=== PATIENT | female | born 1940 | race Caucasian/White ===

== ENCOUNTER 2016-09-13 11:10 | Observation (INO) | payer MEDICARE, MEDICAID ==
[~2016-09-13] VITALS: Ht 157.5 cm; Wt 51.8 kg
[2016-09-13] VITALS (8 sets, daily range): BP systolic 103–180; BP diastolic 49–107; PULSE 54–74; RESP 11–20; O2SAT 98–99
[~2016-09-13 11:10] MED LIST: ACET-1890 PO; ASPI-628 PO; CARB1TAB37 PO; CARB1TAB40 PO; CHOL200025 PO; CRAN450C PO; DOCU100C8 PO; DONE10TA5 PO; ENTA200T6 PO; FERR-83 PO; GUAI100L12 PO; INSLIS SUBQ; INSU100V7 SUBQ; LISI2.5T PO; MULT-185 PO; OMEP-113 PO; ONDA4TAB9 PO; POLY15DR4 OU; POLY17PO6 PO; PRAM0.122 PO; PRAM0.252 PO; PREC VG; SELE1.25 PO; SIMV20TA4 PO; [UNRECOGNIZED DRUG - CODE] PO
--- NOTE | 2016-09-13 11:14 | ED.REPORT ---
HPI-Neurologic Deficit Date of Service Sep 13, 2016 ED Provider: Dr. Estrella A 76 year old female with a history of insulin dependent diabetes and Parkinson' s disease is presented to the ED from [facility] via EMS with AMS. She is moaning and yelling, and cannot answer questions. Per EMS, the [facility] reported blood sugar of 300 at their facility. The patient was then given ketamine with temporary relief of agitation. EMS denies any trauma, and [facility] reported that she gently got onto her bed and then began screaming prior to the onset of symptoms. EMS reports that after recieving ketamine they checked her blood sugar and readings were consistently low while en route, 29 and 32 respectively after two tests, she then recieved 1 amp of D50. No neurologic changes were noted after correcting glucose, however, the patient had just recieved ketamine prior to accuchecks. Blood sugar is now 259 when check in the ER. Per [facility], the patient normally crawls on the floor because she does not like being in a wheel chair, and she converses normally. Per [facility] staff, patient's last known normal was [id number]. Patient is DNR. Patient condition makes history intake difficult. Nursing Notes Stated Complaint: DECREASE LOC Chief Complaint: Neuro Symptoms/ Deficits Nursing Notes Reviewed: Yes Allergies: Coded Allergies: No Known Allergies (Unverified Allergy, Unknown, 09/13/16) Scheduled ([resource 2.0]) 90 ML PO BID Atorvastatin (Lipitor) 10 Mg Tab 10 MG PO HS Carbidopa/Levodopa 25-100 mg (Carbidopa/Levodopa 25-100 mg) 1 Each Tablet 2.5 TABLET PO qam at 0600 Carbidopa/Levodopa 25-100 mg (Sinemet 25-100 mg) 1 Each Tablet 3 TABLET PO qam at 0900 Carbidopa/Levodopa 25-100 mg (Sinemet 25-100 mg) 1 Each Tablet 2 TABLET PO TIDat noon,4p and 8p Carbidopa/Levodopa ER 50-200 mg (Sinemet CR 50-200 mg) 1 Each Tablet 1 TABLET PO HS Cholecalciferol (Vitamin D3) (Vitamin D3) 50,000 Unit Capsule 50,000 UNIT PO daily every 15 days Dextran 70/Hypromellose/Pf (Artificial Tears Drops) 1 Each Droperette 1 DROP BOTH_EYES QID Docusate Sodium (Colace) 100 Mg Capsule 100 MG PO DAILY Donepezil (Aricept) 10 Mg Tablet 10 MG PO HS Entacapone (Entacapone) 200 Mg Tablet 200 MG PO 5XD Estrogens Conjugated (Premarin) 1 Gm Vagcream 1 GM VG every monday night Ferrous Sulfate (Ferrous Sulfate) 325 Mg Tablet 325 MG PO DAILY Insulin Glargine (Lantus U100 Insulin Vial) 100 Unit/Ml Vial 15 UNIT SUBQ AM Insulin Glargine (Lantus U100 Insulin Vial) 100 Unit/Ml Vial 20 UNIT SUBQ HS Lisinopril (Lisinopril) 2.5 Mg Tablet 2.5 MG PO DAILY Multivitamin (Once Daily) 1 Each Tablet 1 EACH PO DAILY Omeprazole (Omeprazole) 20 Mg Capsule.dr 20 MG PO DAILY Polyethylene Glycol 3350 (Miralax) 17 Gm Powd.pack 17 GM PO DAILY Pramipexole Dihydrochloride (Mirapex) 0.125 Mg Tablet 0.125 MG PO qid at 10,2pm, 6p,10p Pramipexole Dihydrochloride (Mirapex) 0.25 Mg Tablet 0.25 MG PO qam at 0600 Selegiline HCl (Zelapar) 1.25 Mg Tab.rapdis 2.5 MG PO QAM Scheduled PRN Acetaminophen (Acetaminophen) 325 Mg Capsule 650 MG PO q4 hours PRN PRN For Pain Guaifenesin (Liquituss GG) 200 Mg/5 Ml Liquid 200 MG PO q4 hours PRN PRN For Cough Insulin Human Lispro (HumaLOG U100 Insulin Vial) 100 Unit/Ml Unit 3 UNIT SUBQ QPM PRN PRN blood sugar >110 Insulin Lispro (HumaLOG U100 Insulin Pen) 100 Unit/1 Ml Insuln.pen 4 UNIT SUBQ BIDBL PRN PRN blood sugar >110 Blood Sugar Lispro Correction <151 0 units 151-175 1 unit 176-200 2 units 201-225 3 units 226-250 4 units 251-275 5 units 276-300 6 units 301-325 7 units 326-350 8 units 351-375 9 units 376-400 10 units >400 12 units Check blood sugars before meals and at bedtime. Use correction factor only before meals. Magnesium Hydroxide (Milk of Magnesia) 400 Mg/5 Ml Oral.susp 30 ML PO DAILY PRN PRN For Constipation General Time Seen by Provider: 11:13 Transferred From: detention Chief Complaint Other (AMS) Hx Obtained From: EMS Arrived By: Ambulance Sudden in Onset?: Yes Onset Occurred: 1 - 4 hours ago (Patient last seen normal [id number].) Symptom Duration: Since onset Severity: Current: Moderate Severity: Maximum: Moderate Recent Healthcare: No recent doctor visit Similar Sx Previous: No Risk Factors TPA Administration/Criteria Stroke Thrombolytic Therapy : TPA Considered: Yes Neurologist Contacted: Yes ([facility] stroke neurology and agrees with no TPA) TPA Administered Intravenously: No, exclusion criteria (Not TPA candiate beause of low glucose.) Past Medical History Past Medical History Patient is DNR. Parkinson's disease, with medication managed by Dr. John. Past Surgical History None reported. Ambulatory Status Crawling (Does not like being in wheel chair at [facility]. ) Review of Systems Unable to Obtain ROS Patient condition Physical Exam Initial Vital Signs Vital Signs (First) Date Time Temp Pulse Resp B/P Pulse Ox O2 Delivery O2 Flow Rate FiO2 09/13/16 11:13 74 18 147/107 99 Room Air Initial VS: Reviewed General/Constitutional: Awake Patient is altered and screaming. Head / Eyes: Atraumatic, Normocephalic Respiratory / Chest: Atraumatic, Breath sounds NL, Breath sounds = bilat, No respiratory distress Cardiovascular: Heart rate NL, Regular rhythm, Heart sounds NL, No gallop, No murmurs, No rubs Neuro exam is nonfocal. Motor and sensory functionx all 4 extremities. ENT: Atraumatic, Airway patent Neck: Atraumatic, Full range of motion Abdomen: Atraumatic, No guarding, No rebound Back: Atraumatic, Full range of motion Upper Extremity / MS: Atraumatic, Full range of motion Lower Extremity / Pelvis / MS: Atraumatic, Full range of motion Skin: Atraumatic, Warm, Dry Wrist / Hand: Atraumatic, Full range of motion Ankle / Foot: Atraumatic, Full range of motion Interpretation & Diagnostics Lab Results Interpretation Result Diagram: 09/13/16 1120 09/13/16 1120 Test 09/13/16 11:20 09/13/16 11:22 09/13/16 12:32 White Blood Count 10.7th/mm3 (3.8-10.1) Red Blood Count 4.14mil/mm3 (3.90-5.20) Hemoglobin 11.9g/dL (12.0-15.6) Hematocrit 35.5% (35.0-46.0) Mean Corpuscular Volume 85.7fL (81-100) Mean Corpuscular Hemoglobin 28.7pg (27.0-35.0) Mean Corpuscular Hemoglobin Concent 33.5% (32.0-37.0) Red Cell Distribution Width 13.2% (12.3-15.4) Platelet Count 333bil/L (150-400) Neutrophils (%) (Auto) 59.9% (40-74) Lymphocytes (%) (Auto) 25.7% (14-46) Monocytes (%) (Auto) 13.0% (4-12) Eosinophils (%) (Auto) 0.8% (0-5) Basophils (%) (Auto) 0.4% (0-3) Hold Blue Top Tube Received (Received) Sodium Level 134mEq/L (134-144) Potassium Level 3.8mEq/L (3.5-5.2) Chloride Level 97mEq/L (97-108) Carbon Dioxide Level 19mmol/L (18-29) Blood Urea Nitrogen 57mg/dL (8-27) Creatinine 1.47mg/dL (0.57-1.00) Estimat Glomerular Filtration Rate 50mL/min (>59) Glucose Level 36mg/dL (60-99) Calcium Level 9.3mg/dL (8.5-10.1) Total Bilirubin 0.4mg/dL (0.0-1.2) Aspartate Amino Transf (AST/SGOT) 24U/L (0-50) Alanine Aminotransferase (ALT/SGPT) 5U/L (0-32) Alkaline Phosphatase 63U/L (25-165) Total Protein 7.6g/dL (6.4-8.4) Albumin 3.9g/dL (3.4-5.0) Hold Red Top Tube Received (Received) Urine Color Yellow (YELLOW) Urine Appearance Hazy (CLEAR,HAZY) Urine pH 5.0 (5.0-8.0) Urine Specific Floris 1.020 (1.003-1.035) Urine Protein Negativemg/dL (NEG,TRACE) Urine Glucose (UA) Negativemg/dL (NEGATIVE) Urine Ketones Tracemg/dL (NEGATIVE) Urine Occult Blood Negative (NEGATIVE) Urine Nitrite Negative (NEGATIVE) Urine Bilirubin Negative (NEGATIVE) Urine Urobilinogen Normalmg/dL (NORMAL) Urine Leukocyte Esterase Small (NEGATIVE) Urine RBC 0-2/hpf (0-2) Urine WBC 11-50/hpf (0-5) Urine Epithelial Cells Occasional/hpf (NONE-MOD) Urine Crystals None seen (NONE SEEN) Urine Bacteria Many/hpf (NONE-FEW) Urine Hyaline Casts Occasional/lpf (NONE) Urine Granular Casts None seen (NONE SEEN) Urine Waxy Casts None seen (NONE SEEN) Urine Red Blood Cell Casts None seen (NONE SEEN) Urine White Blood Cell Casts None seen (NONE SEEN) Urine Mucus None seen (None Seen) Urine Trichomonas None seen (NONE SEEN) Urine Yeast None (NONE SEEN) Urinalysis Comment None Urine Culture Reflexed Indicated Ammonia 46ug/dL (18-53) ECG Interpretation ECG Interpretation: Rate is 55. Sinus rhythm. Atrial premature complexes. Probable left ventricular hypertrophy. Time: 12:00 Interpreted by: ED physician X-Ray Chest Interpretation Chest Xray Interpretation: Caution: Report not yet finalized and possibly incomplete! IMPRESSION: No acute cardiopulmonary disease. Dictated by: Yoan Ro [facility] Interpreted: Laura Camacho MD on 09/13/2016 at 12:20 Transcribed by: LARISSA on 09/13/2016 at 12:21 View: Portable, [address] Brain (TPA) IMPRESSION: 1. No acute intracranial disease process. 2. Findings telephoned to Dr. Peter Estrella on 09/13/2016 1131 hrs. This study fulfills neurological imaging criteria for inclusion or exclusion of acute stroke therapies based on available published neurological guidelines. Dictated by: Laura Camacho MD, PhD on 09/13/2016 at 11:31 Approved by: Laura Camacho MD, PhD on 09/13/2016 at 11:33 Re-Eval/Medical Decision Med Decision/Clinical Course TPA was not administered for various reasons, unclear that this truly represents a stroke, she has altered mental status and with that exception does not have any other obvious signs of stroke. There are functional limitations here due to both mid administration and the patient's altered mental status, a formal NIH stroke scale cannot be performed. She had a glucose below 50 which is a contraindication. She is also a DO NOT RESUSCITATE limited intervention patient with the poor functional baseline to begin with. Her case was discussed with both [facility] stroke neurology oracle endeca consultant who agrees with no TPA, as well as the patient's DURABLE POWER OF FINANCIAL SERVICES ASSOCIATE who also agrees with the plan of care. Does have evidence of urinary tract infection on UA however not clear that this seems to represent the underlying cause for her symptoms. I think she needs admission for further clearance of the ketamine and Versed that she received as well as clinical improvement of her neurologic status and further neurologic workup. Source of Hx: Old records, EMS Re-Evaluation/Progress #1: Time of Eval: 12:02 Re-Evaluation/Progress Note: She is now accompanied by two friends of her son, both of which have power of divorce attorney. They report that she does not have regular outbursts, but can become stiff if she deviates from her Parkinson's medication regiment. They report that due to her Parkinson's it has recently been getting harder and harder to understand what she is saying during conversations. . They report that the patient normally snores when sleeping. Re-Evaluation/Progress #2: Time of Eval: 12:10 Re-Evaluation/Progress Note: Rechecked patient. Tested patient blood obtained en route by EMS which has reading of 36. Not TPA candiate becasue of low glucose. Consultation #1: Call Returned at: 12:24 Note: Discussed case with [facility] stroke neurology and they agree with the plan to not administer TPA. Consultation #2: Referral / Consult Name: Pola James DO Call Returned at: 12:30 Relations Specialist: Agrees with eval, Agrees with plan Note: Discussed patient case with Dr. James who accepts patient admit. Counseled Regarding: Diagnosis, Lab results, Need for admission Discharge & Departure Impression: Primary Impression: Altered level of consciousness Disposition: ADMITTED TO HOSPITAL Discharge Condition All VS Reviewed: Yes Condition: Improved Referrals: Traci Mead MD (PCP) Nita Attestation Portions of this note were transcribed by Garcia Kruse. I, Dr. Estrella personally performed the history, physical exam and medical decision-making; I reviewed and confirmed the accuracy of the information in the transcribed note. Signed by: Nita Mccartney, 09/13/2016 [id number]. copies to: Traci Mead MD, Timothy S DO Sep 13, 2016 11:14 Garcia Kruse Sep 13, 2016 11:28
[2016-09-13 11:24] LABS: BASOPHILS % (AUTO) 0.4 % (0-3); EOSINOPHILS % (AUTO) 0.8 % (0-5); Mean Corpuscular Hemoglobin 28.7 pg (27.0-35.0); Mean Corpuscular Volume 85.7 fL (81-100); NEUTROPHILS % (AUTO) 59.9 % (40-74); Platelet Count 333 bil/L (150-400)
--- NOTE | 2016-09-13 11:35 | DRSVH ---
PROCEDURE: CT BRAIN (TPA) ([id number]) INDICATIONS: Acute decrease level of consciousness. TECHNIQUE: Noncontrast 4.5 mm thick angled axial sections acquired from the foramen magnum to the vertex, with c oronal reformats. COMPARISON: MR, BRAIN W/O CONTRAST, 03/24/2006, 9:58. FINDINGS: Image quality: Excellent. CSF spaces: Basal cisterns are patent. No extra-axial fluid collections. The ventricles are symmet bryan in size and shape. Brain: No intracranial bleeds or masses. There is cerebral volume loss for age, with resultant vent ricular and sulcal prominence. There are periventricular and deep white matter chronic small vessel ischemic changes. There is intracranial internal carotid artery atherosclerosis. Skull and face: Calvarium and visualized facial bones appear intact, without suspicious lesions. Sinuses: Visualized sinuses and mastoids are clear. IMPRESSION: 1. No acute intracranial disease process. 2. Findings telephoned to Dr. Peter Estrella on 09/13/2016 1131 hrs. This study fulfills neurological imaging criteria for inclusion or exclusion of acute stroke therapie s based on available published neurological guidelines. Dictated by: Laura Camacho MD, PhD on 09/13/2016 at 11:31 Approved by: Laura Camacho MD, PhD on 09/13/2016 at 11:33
--- NOTE | 2016-09-13 12:17 | ABG ---
DateTimeAnalyzed 12:12:00 -_ pH ____7.374 - 7.350 7.450 pCO2 ___37.9__ -mmHg 35.0 45.0 pO2 ___94.3__ -mmHg 69.0 116 HCO3- ___21.6__ -mmol/L 22.0 26.0 ABE ___-2.7__ -mmol/L -2.0 2.0 tHb ___10.5__ -g/dL O2Hb ___95.9__ -% COHb ____0.9__ -% MetHb ____0.7__ -% sO2 ___97.5__ -% FIO2 ___21.0__ -% Drawn By jj - Date/Time Notified____ 12:17:00 -_ Oxygen Device 1 _ROOM AIR - Notified By JJ - Notified Whom DR OKELLEY - B 755 -mmHg tO2 ___14.2__ -Vol% Tobias test _Positive -
[2016-09-13 12:20] LABS: APPEARANCE,URINE HAZY (CLEAR,HAZY); COLOR,URINE YELLOW (YELLOW); OCCULT BLOOD,URINE NEGATIVE (NEGATIVE); UROBILINOGEN,URINE NORMAL (NORMAL)
--- NOTE | 2016-09-13 12:21 | DRSVH ---
PROCEDURE: X-RAY CHEST ONE VIEW, PORTABLE ([id number]) INDICATIONS: dec LOC TECHNIQUE: One view of the chest was acquired. COMPARISON: [facility], , CHEST 1VW (PORTABLE), 12/18/2013, 21:17. FINDINGS: Surgical changes and devices: None. Lungs and pleura: No pleural effusions or pneumothorax. Rounded opacity projected over the mid infe rior right lung which may represent inferior aspect of the scapula, otherwise lungs are clear. Mediastinum: Mediastinal contours appear normal. Heart size is normal. Bones and chest wall: No suspicious bony lesions. Overlying soft tissues appear unremarkable. IMPRESSION: Rounded opacity projected over the mid to right inferior right lung likely representing t he inferior medial margin of the scapula. When clinically feasible recommend non-urgent two-view angela [facility] radiograph for confirmation. Dictated by: Yoan Ro [facility] Interpreted: Laura Camacho MD on 09/13/2016 at 12:20 Transcribed by: LARISSA on 09/13/2016 at 12:21 Approved by: Laura Camacho MD, PhD on 09/14/2016 at 11:00
[2016-09-13] MEDS ORDERED: Ondansetron 2 mg/mL 2 mL Inj IVPUSH PRN (12:40)
[2016-09-13] MEDS ORDERED: Alum-Mag Hydrox-Simeth 30 mL Suspension PO PRN (12:40)
--- NOTE | 2016-09-13 13:42 | NUR ---
Admit Patient arrived around 1335 to room 3018 via rney. Patient was assisted to bed by staff. Patient POA at bedside at time of admit. Patient has multiple bruising on arms, legs, abdomen and back. Patient unable to answer any question or speak. Patient knees are extremely large filled with fluid and bruised. Patient has vera alarm on bed. Patient is unable to be oriented.
[2016-09-13] MEDS ORDERED: ATRV10T PO (13:58)
[2016-09-13] MEDS ORDERED: PREC VG (13:58)
[2016-09-13] MEDS ORDERED: RESOURCE PO (13:58)
[2016-09-13] MEDS ORDERED: CARB1TAB14 PO (13:58)
[2016-09-13] MEDS ORDERED: MAGN400O4 PO (13:58)
[2016-09-13] MEDS ORDERED: DEXT1DRO8 BOTH_EYES (13:58)
[2016-09-13] MEDS ORDERED: INSU100I18 SUBQ (13:58)
[2016-09-13] MEDS ORDERED: SELE1.25 PO (13:58)
[2016-09-13] MEDS ORDERED: LVCR25100 PO ×2 (13:58)
[2016-09-13] MEDS ORDERED: POLY17PO6 PO (13:58)
[2016-09-13] MEDS ORDERED: [UNRECOGNIZED DRUG - CODE] PO (13:58)
[2016-09-13] MEDS ORDERED: CHOL500050 PO (13:58)
[2016-09-13] MEDS ORDERED: MULT-666 PO (14:17)
[2016-09-13] MEDS ORDERED: ACET325C PO (14:17)
[2016-09-13] MEDS ORDERED: DOCU-41 PO (14:17)
[2016-09-13] MEDS ORDERED: GUAI200L3 PO (14:17)
[2016-09-13] MEDS ORDERED: OMEP20CA11 PO (14:17)
[2016-09-13] MEDS: 0.9% Sodium Chloride 1,000 ML IV SCH (14:29)
--- NOTE | 2016-09-13 14:53 | PCM.HPMED ---
Subjective Date of Service Sep 13, 2016 Primary Provider: Admitting Physician: Pola Avalos DO Primary Care Physician: Traci Mead MD Attending Physician: Pola Avalos DO Chief Complaint: AMS History of Present Illness: Melvi is a 76 yo female with history of Insulin Dependent T2DM and severe Parkinson's Disease who presented to the Ed from [facility] by EMS for altered mental status. Patient has severe dysarthria and dementia due to her PD so history is provided by EMS, nursing facility reports, and her two friends who are her reported DPOA. Per report, she was noted to be abruptly agitated and aggressive early this morning with nursing staff while in bed, which is fairly unusual, so they called EMS. She was noted to have a blood sugar in the 300s at the SNF, but EMS blood sugar readings were reported to be 29 and 32 during transport. She was given 1 amp of D50 while en route, but did not improve patient's mental status. She was given Ketamine which improved her agitation. Blood sugar in the ED was noted to be 259. Blood drawn during EMS transport was analyzed again at the ED and sugar was indeed low at 36. Per her DPOAs, she was at baseline prior to this morning and has not had any complaints of pain or fever. They note that she does get AMS with previous UTIs, but not as agitated as this episode. They haven't noticed any focal weakness or asymmetry to her face. At baseline, she is able to acknowledge and answer simple questions and generally crawls around instead of using her wheelchair. No trauma was reported. In the ED, she was afebrile, mildly bradycardic in the high 50s, and blood pressure was stable in the 140s systolic. She was 98% on RA. ABG was reassuring and CBC showed WBC of 10.7 with benign diff. CMP pertinent for Cr of 1.47 and BG of 36. Ammonia level was 46. We do not have any recent Cr for comparison. Urine was positive for small Leukocytes and 11-50 WBC. She had a portable CXR and Brain CT that were benign. Review of Systems: Unable to obtain due to patient's altered mental status. Allergies Coded Allergies: No Known Allergies (Unverified Allergy, Unknown, 09/13/16) H Parkinson's Disease -mainly bedbound and sedentary -dysarthria/dysphagia/dementia/neurogenic bowel -Dr. John is neurologist Insulin Dependent Type 2 Diabetes Mellitus Chronic right hydronephrosis: documented in CT abdomen from 2004 Chronic cholelithiasis : documented on CT abdomen from 2004 GERD Vitamin D deficiency Depression Urinary and bowel incontinence Hyperlipidemia: Hypertension Surgical History DPOAs deny any surgeries Social History Hx Alcohol Use: No Hx Substance Use: No Hx Tobacco Use: No Smoking Status: Never Smoker Living Arrangement: Custodial Facility Additional Information POAS ARE SALMA PRASAD AND VICKI RODRIGUEZ Exam Vital Signs Vital Sign - Last Date Time Temp Pulse Resp B/P Pulse Ox O2 Delivery O2 Flow Rate FiO2 09/13/16 13:04 36 56 18 110/71 98 Room Air Exam Gen: Thin female who appears somnolent and only opens eye to noxious stimuli HEENT: Atraumatic, PERRL, Oral mucosa dry Neck: Soft, midline CV: RRR with soft systolic murmur, radial pulses present and equal Resp: CTAB, normal respiratory effort Abd: Soft, non-distended, normoactive BS present, No pain response to deep palpation of abd or suprapubic region. MSK: Moves all extremities. Large bilateral pre-patellar effusion. No erythema noted. Neuro: Opens eyes only to noxious stimuli, repetitive circular motion of neck Skin: No rashes noted, warm, dry Psych: Not alert or oriented : Love catheter in place draining Beckie colored urine Lab and Diagnostics Result Diagram: 09/13/16 1120 09/13/16 1120 X-Rays, CTs and MRIs PROCEDURE: X-RAY CHEST ONE VIEW, PORTABLE ([id number]) Surgical changes and devices: None. Lungs and pleura: No pleural effusions or pneumothorax. Rounded opacity projected over the mid inferior right lung which may represent inferior aspect of the scapula, otherwise lungs are clear. Mediastinum: Mediastinal contours appear normal. Heart size is normal. Bones and chest wall: No suspicious bony lesions. Overlying soft tissues appear unremarkable. IMPRESSION: Rounded opacity projected over the mid to right inferior right lung likely representing the inferior medial margin of the scapula. When clinically feasible recommend non-urgent two-view chest radiograph for confirmation. PROCEDURE: CT BRAIN (TPA) ([id number]) CSF spaces: Basal cisterns are patent. No extra-axial fluid collections. The ventricles are symmetric in size and shape. Brain: No intracranial bleeds or masses. There is cerebral volume loss for age , with resultant ventricular and sulcal prominence. There are periventricular and deep white matter chronic small vessel ischemic changes. There is intracranial internal carotid artery atherosclerosis. Skull and face: Calvarium and visualized facial bones appear intact, without suspicious lesions. Sinuses: Visualized sinuses and mastoids are clear. IMPRESSION: 1. No acute intracranial disease process. 2. Findings telephoned to Dr. Peter Estrella on 09/13/2016 1131 hrs. This study fulfills neurological imaging criteria for inclusion or exclusion of acute stroke therapies based on available published neurological guidelines. Assessment & Plan 76 yo F with h/o Parkinson's and IDDM presents for sudden onset of AMS. Altered Mental Status, POA Uncertain of etiology, but this could be due to a UTI, hypoglycemia, or worsening of PD. Unlikely stroke with non-focal exam, but still a possibility UA did show small Leukocytes with 11-50 WBC. Culture pending. Will initiate antibiotics until cultures return Patient's Brain CT on admit was benign, EKG read as Sinus rhythm with rate of 55 with prob LVH and PACs NPO until swallow evaluation Will treat presumed UTI with IV Ceftriaxone 1 gram q24. Blood cultures and urine cultures pending Severe Parkinson's Disease, POA Patient is mainly bedbound and sedentary at baseline, although she does crawl around on the ground at times. She also has dysarthria, dysphagia, dementia, and incontinence Plan to continue home medication regimen Insulin Dependent Type 2 Diabetes Mellitus, POA Hypoglycemia could be a cause of patient's AMS, Will monitor glucose regularly Resume home Lantus dose and initiate medium dose correctional scale Hemoglobin A1c pending Chronic Urinary and bowel incontinence secondary to Parkinson's Disease, POA Will continue love catheter while patient is altered Hypertension, POA Hold PO medications until swallow eval Hyperlipidemia, POA Dispo: Due to patient's medical complexity and decompensation, she will require at least 2 nights for evaluation and stabilization. Likely discharge back to [facility] when able. Pain Evaluation: Other (unable to assess) VTE Prophylaxis: Sub-Q Heparin (Unfractionated) Resuscitation Status: DNR/DNI:Do Not Resuscitate/Intubate Time spent 50 minutes Attending Statement I have seen and evaluated patient at bedside in addition to directly supervising care provided by resident physician. I agree with above documentation. Christopher Plaza DO Sep 13, 2016 13:27 Pola Avalos DO Sep 14, 2016 07:52
[2016-09-13] MEDS ORDERED: Glucose 40% Oral Gel 15 Gm Tube PO PRN (16:10)
--- NOTE | 2016-09-13 16:52 | NUR ---
Evaluation completed. Please go to "Notes" then click on "Assessments and Notes" (bottom left corner of screen). Then select appropriate discipline tab on top of screen.
[2016-09-13] MEDS: Insulin LISPRO 300 Unit/3 mL Inj SUBQ SCH ×2 (17:24→22:00)
[2016-09-13] MEDS: cefTRIAXone Inj 1,000 MG in Dextrose 5% Minibag Plus 50 ML IV SCH (18:15)
[2016-09-13] MEDS: Entacapone 200 mg Tablet PO SCH ×2 (18:35→21:36)
[2016-09-13] MEDS: Artificial Tears 15 mL Ophthalmic Solution BOTH_EYES SCH ×2 (18:36→21:36)
[2016-09-13] MEDS: Carbidopa-Levodopa 50-200 mg ER12 Tablet PO SCH (21:00)
[2016-09-13] MEDS: Insulin GLARgine 100 Unit/mL Syringe SUBQ SCH (22:00)
[2016-09-14] VITALS (7 sets, daily range): BP systolic 132–169; BP diastolic 54–70; PULSE 48–61; RESP 18–20; O2SAT 96–98
[2016-09-14] MEDS: 0.9% Sodium Chloride 1,000 ML IV SCH (01:55)
--- NOTE | 2016-09-14 05:49 | NUR ---
Mentation: Upon first entering the room, pt had minimal responsiveness, answered questions with a moan only although did squeeze hands when asked to. Then pt woke and was able to communicate with soft, difficult to understand speech at times; but was able to make needs known. Through the night, pt remained communicative with her soft speech, smiling with conversation.
[2016-09-14] MEDS: Pantoprazole 40 mg ER24 Tablet PO SCH (06:08)
[2016-09-14] MEDS: Artificial Tears 15 mL Ophthalmic Solution BOTH_EYES SCH ×4 (06:17→21:10)
[2016-09-14] MEDS: Entacapone 200 mg Tablet PO SCH ×5 (06:23→21:10)
[2016-09-14] MEDS: Insulin GLARgine 100 Unit/mL Syringe SUBQ SCH ×2 (08:00→21:22)
[2016-09-14] MEDS: Insulin LISPRO 300 Unit/3 mL Inj SUBQ SCH ×4 (08:00→21:10)
[2016-09-14] MEDS: Polyethylene Glycol (PEG) 17 Gm Powder PO SCH (08:06)
[2016-09-14] MEDS: cefTRIAXone Inj 1,000 MG in Dextrose 5% Minibag Plus 50 ML IV SCH (08:07)
[2016-09-14] MEDS: SELEGILINE PO SCH (08:08)
[2016-09-14 08:45] LABS: BASOPHILS % (AUTO) 0.5 % (0-3); EOSINOPHILS % (AUTO) 2.3 % (0-5); MONOCYTES % (AUTO) 11.4 % (4-12); Mean Corpuscular Hemoglobin 28.7 pg (27.0-35.0); Mean Corpuscular Volume 87.2 fL (81-100); NEUTROPHILS % (AUTO) 62.6 % (40-74); Platelet Count 300 bil/L (150-400)
--- NOTE | 2016-09-14 11:04 | PCM.PNMED ---
Subjective Date of Service Sep 14, 2016 Subjective Improved mentation over night. Able to tolerate soft diet. No behavioral problems noted. She was much more interactive this morning and was able to answer questions appropriately, although speech is somewhat unintelligible due to her dysarthria. She voiced no CP, SOB, or abd pain. Discussed plan with patient and she voiced understanding. Exam Vital Signs Vital Sign - Last Date Time Temp Pulse Resp B/P Pulse Ox O2 Delivery O2 Flow Rate FiO2 09/14/16 05:48 37.4 61 20 169/65 96 Room Air Intake and Output 09/13/16 09/13/16 09/14/16 Cumulative From/Thru 15:00 23:00 07:00 09/13/16 11:13 - 09/14/16 06:32 Intake Total 345 ml 1726 ml 2071 ml Output Total 650 ml 650 ml 1300 ml Balance -305 ml 1076 ml 771 ml Intake Oral 225 ml 230 ml 455 ml IV Total 120 ml 1496 ml 1616 ml Output Urine Total 650 ml 650 ml 1300 ml # Bowel Movements 0 0 Exam Gen: Thin female who appears in NAD, cooperative HEENT: Atraumatic, PERRL, Oral mucosa dry Neck: Soft, midline CV: RRR with soft systolic murmur, radial pulses present and equal Resp: CTAB, normal respiratory effort Abd: Soft, non-distended, normoactive BS present, non tender MSK: Moves all extremities. Large bilateral pre-patellar effusion. No erythema noted. Neuro: Repetitive circular motion of neck and right hand. Alert and oriented to place and person. No focal weakness Skin: No rashes noted, warm, dry Psych: Not alert or oriented : Angelo catheter in place draining Beckie colored urine IVs and Medications Medications Reviewed: Medications were reviewed in detail Lab and Diagnostics Result Diagram: 09/13/16 1120 09/13/16 1618 X-Rays, CTs and MRIs PROCEDURE: X-RAY CHEST ONE VIEW, PORTABLE ([id number]) Surgical changes and devices: None. Lungs and pleura: No pleural effusions or pneumothorax. Rounded opacity projected over the mid inferior right lung which may represent inferior aspect of the scapula, otherwise lungs are clear. Mediastinum: Mediastinal contours appear normal. Heart size is normal. Bones and chest wall: No suspicious bony lesions. Overlying soft tissues appear unremarkable. IMPRESSION: Rounded opacity projected over the mid to right inferior right lung likely representing the inferior medial margin of the scapula. When clinically feasible recommend non-urgent two-view chest radiograph for confirmation. PROCEDURE: CT BRAIN (TPA) ([id number]) CSF spaces: Basal cisterns are patent. No extra-axial fluid collections. The ventricles are symmetric in size and shape. Brain: No intracranial bleeds or masses. There is cerebral volume loss for age , with resultant ventricular and sulcal prominence. There are periventricular and deep white matter chronic small vessel ischemic changes. There is intracranial internal carotid artery atherosclerosis. Skull and face: Calvarium and visualized facial bones appear intact, without suspicious lesions. Sinuses: Visualized sinuses and mastoids are clear. IMPRESSION: 1. No acute intracranial disease process. 2. Findings telephoned to Dr. Peter Estrella on 09/13/2016 1131 hrs. This study fulfills neurological imaging criteria for inclusion or exclusion of acute stroke therapies based on available published neurological guidelines. Assessment & Plan 76 yo F with h/o Parkinson's and IDDM presents for sudden onset of AMS. Altered Mental Status, POA, REsolved Uncertain of etiology, but this could be due to a UTI, hypoglycemia, or worsening of PD. Unlikely stroke with non-focal exam, but still a possibility UA did show small Leukocytes with 11-50 WBC. Culture pending. Will initiate antibiotics until cultures return Patient's Brain CT on admit was benign, EKG read as Sinus rhythm with rate of 55 with prob LVH and PACs NPO until swallow evaluation Will treat presumed UTI with IV Ceftriaxone 1 gram q24 (09/13/16), plan to tx with 7 day course Blood cultures pending Urine cultures growing GNR, tailor abx to [place]. Severe Parkinson's Disease, POA Patient is mainly bedbound and sedentary at baseline, although she does crawl around on the ground at times. She also has dysarthria, dysphagia, dementia, and incontinence Plan to continue home medication regimen Insulin Dependent Type 2 Diabetes Mellitus, POA Hypoglycemia could be a cause of patient's AMS, Will monitor glucose regularly Resume home Lantus dose and initiate medium dose correctional scale - HELD Insulin last night and this morning due to BG <60. Will continue to hold and watch BG. Will titrate Insulin regimen appropriately. May be inappropriately low due to infection. Hemoglobin A1c pending Chronic Urinary and bowel incontinence secondary to Parkinson's Disease, POA Plan to D/c Angelo Hypertension, POA Resume home meds Hyperlipidemia, POA Dispo: Due to patient's medical complexity and decompensation, she will require at least 2 nights for evaluation and stabilization. Likely discharge back to [facility] when able. Pain Evaluation: Adequate Pain Control VTE Prophylaxis: Sub-Q Heparin (Unfractionated) VTE Mechanical Devices: Intermittant Pneumatic CD Resuscitation Status: DNR/DNI:Do Not Resuscitate/Intubate Time spent 25 minutes Attending Statement I have seen and evaluated patient at bedside in addition to directly supervising care provided by resident physician. I agree with above documentation. Christopher Plaza DO Sep 14, 2016 08:07 Pola Avalos DO Sep 14, 2016 14:16
--- NOTE | 2016-09-14 14:20 | NUR ---
Social Work-initial assessment: Data:See initial assessment. Pt is a 76 y/o female who was admitted on 09/13/16 for alerted level of consciousness per H&P. Pt's PCP is Traci Mead MD. EMR reviewed. Pt resides at 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 Pt uses a fww at baseline and does not drive. MAREN placed a call to pt's DPOA's Tomas and Anjum, left message for them to discuss. MAREN spoke with Brianna at [facility] who confirms that they are able to accept pt back when medically stable with Dr. Mead to follow. Paperwork in the chart. SW will continue to follow. Assessment:pt who resides at [facility]. plan:pt to discharge back to [facility] when medically stable. Paperwork in the chart. SW will continue to follow. DONI Hairston Addendum: 09/14/16 at 1423 by RINA WOODRUFF Amended: Links added.
--- NOTE | 2016-09-14 17:50 | NUR ---
Activity Patient alert and oriented X3. Patient is difficult at times to understand due to slurred speech at times related to Parkinson's. Patient has been moving in bed frequently independently. Luna alarm in place. Patient did pull out her peripheral IV due to frequent movement. New 20guage IV placed in left forearm. Patient had a large, soft, dark brown incontinent bowel movement today. Blood sugar was on the lower side this morning at 112 and morning insulins were held due to blood glucose levels and MD orders. Patient Glucose levels have been high throughout the rest of the day. Patient continues to tolerate full liquid HTL diet, but asks for sandwiches and regular textured food. Patient denied pain throughout the day.
--- NOTE | 2016-09-14 19:49 | NUR ---
Case Management: Unable to provide SCHULTE as room was darkened at 1900--no family present. Will have to try again tomorrow am. Cece Pablo RN
[2016-09-14] MEDS: Carbidopa-Levodopa 50-200 mg ER12 Tablet PO SCH (21:09)
--- NOTE | 2016-09-15 03:26 | NUR ---
Mentation/Activity Patient appears to be alert and oriented, but forgetful and difficult to understand speech. Cooperative with care and pleasant to staff. Frequent reminders to not lean over bed rails or pull at catheter. Patient denies trying to get out of bed. Fell asleep around 0200, but was very actively moving in bed before that. Floor padding in place, bed alarm on, and call light within reach for safety. Patient denies pain. Intentional rounding in place.
[2016-09-15] MEDS: Entacapone 200 mg Tablet PO SCH ×3 (06:03→14:05)
[2016-09-15] MEDS: Pantoprazole 40 mg ER24 Tablet PO SCH (06:03)
[2016-09-15] MEDS: Artificial Tears 15 mL Ophthalmic Solution BOTH_EYES SCH ×2 (06:03→13:36)
[2016-09-15 06:34] VITALS: BP 181/72; PULSE 60; RESP 16
--- NOTE | 2016-09-15 06:37 | NUR ---
Blood pressure Patient's AM blood pressure was 181/72, trending up. Heart rate has been 50-60's. Patient is resting at this time. Will pass on to day RN.
[2016-09-15 06:52] LABS: BASOPHILS % (AUTO) 0.5 % (0-3); EOSINOPHILS % (AUTO) 2.9 % (0-5); MONOCYTES % (AUTO) 12.7 % (4-12); Mean Corpuscular Hemoglobin 28.6 pg (27.0-35.0); Mean Corpuscular Volume 87.8 fL (81-100); NEUTROPHILS % (AUTO) 56.7 % (40-74); Platelet Count 296 bil/L (150-400)
[2016-09-15] MEDS: Insulin LISPRO 300 Unit/3 mL Inj SUBQ SCH ×2 (08:00→12:00)
[2016-09-15] MEDS: SELEGILINE PO SCH (08:30)
[2016-09-15] MEDS: Polyethylene Glycol (PEG) 17 Gm Powder PO SCH (09:24)
[2016-09-15] MEDS: Insulin GLARgine 100 Unit/mL Syringe SUBQ SCH (09:24)
[2016-09-15] MEDS: cefTRIAXone Inj 1,000 MG in Dextrose 5% Minibag Plus 50 ML IV SCH (09:26)
--- NOTE | 2016-09-15 10:16 | PCM.DIMED ---
Christopher Plaza DO 09/15/16 1016: Discharge Instructions Date of Service Sep 15, 2016 Dates of Hospitalization Sep 13, 2016 at 12:40 Discharge Diagnosis Discharge Diagnosis Acute Encephalopathy secondary to E. coli UTI, improving Severe Parkinson's Disease Insulin Dependent Type 2 Diabetes Mellitus Chronic Urinary and bowel incontinence secondary to Parkinson's Disease Hypertension Hyperlipidemia Medication Instructions Please continue taking your medications as instructed. Please take the antibiotics as instructed and finish them all Please drink at least 2 Liters of water daily. Diet Diabetic Activity Outpatient Physical Therapy Call your provider Fever or Chills, Shortness of breath, Vomitting, Weakness (unilateral) Patient Instructions You are being discharged back to [facility] Please follow up with your PCP in 1-2 weeks. Follow-up Provider: Traci Mead MD Follow-up with PCP in: 1 week Pola Avalos DO 09/16/16 0748: Discharge Instructions Attending's Statement Read and agree Christopher Plaza DO Sep 15, 2016 10:16 oPla Avalos DO Sep 16, 2016 07:48
[2016-09-15] MEDS ORDERED: CEPH-512 PO (10:18)
[2016-09-15] MEDS ORDERED: INSU100V7 SUBQ (10:18)
[2016-09-15 12:48] VITALS: BP 141/53; PULSE 48; RESP 18; O2SAT 97
--- NOTE | 2016-09-15 14:06 | NUR ---
Social Work: Discharge Bolt Loader called patient's [facility]K T[facility] Pena, but there was no answer. SW left a message that patient was transferring back to [facility]. Patient will transfer to [facility] via cabulance. Katy Treviño, ELIEZER, ACM
--- NOTE | 2016-09-15 14:12 | NUR ---
Discharge Patient departed unit accompanied by transport staff from [facility]. Patient alert at time of discharge and knew she was returning to [facility] facility. Patient Angelo discontinued prior to discharge, had one slightly damp brief after removal. Patient continues to be restless and bilateral knees continue to be fluid filled. Patient reporting her Lt forearm is tender where a visible bruise is present. Patient upgraded by speech therapy to a pureed diet, honey thick liquids, this morning. Patient will continue antibiotics after discharge. Discharge instructions/medications reviewed with patient prior to discharge. Due to speech difficulty, it is difficult to assess patient understanding. Patient belongings, discharge instructions and prescription given to transporter.
--- NOTE | 2016-09-16 19:41 | PCM.DC.MED ---
Discharge Summary Date of Service Sep 16, 2016 Dates of Hospitalization Date of Hospital Admission Sep 13, 2016 at 12:40 Date of Discharge: Sep 15, 2016 Providers: Admitting Physician: Pola Avalos DO Primary Care Physician: Traci Mead MD Attending Physician: Pola Avalos DO Diagnosis at Time of Discharge Diagnosis at Time of Discharge Acute Encephalopathy secondary to E. coli UTI, improving Severe Parkinson's Disease Insulin Dependent Type 2 Diabetes Mellitus Chronic Urinary and bowel incontinence secondary to Parkinson's Disease Hypertension Hyperlipidemia Procedures XRay, CTs & MRIs PROCEDURE: X-RAY CHEST ONE VIEW, PORTABLE ([id number]) Surgical changes and devices: None. Lungs and pleura: No pleural effusions or pneumothorax. Rounded opacity projected over the mid inferior right lung which may represent inferior aspect of the scapula, otherwise lungs are clear. Mediastinum: Mediastinal contours appear normal. Heart size is normal. Bones and chest wall: No suspicious bony lesions. Overlying soft tissues appear unremarkable. IMPRESSION: Rounded opacity projected over the mid to right inferior right lung likely representing the inferior medial margin of the scapula. When clinically feasible recommend non-urgent two-view chest radiograph for confirmation. PROCEDURE: CT BRAIN (TPA) ([id number]) CSF spaces: Basal cisterns are patent. No extra-axial fluid collections. The ventricles are symmetric in size and shape. Brain: No intracranial bleeds or masses. There is cerebral volume loss for age , with resultant ventricular and sulcal prominence. There are periventricular and deep white matter chronic small vessel ischemic changes. There is intracranial internal carotid artery atherosclerosis. Skull and face: Calvarium and visualized facial bones appear intact, without suspicious lesions. Sinuses: Visualized sinuses and mastoids are clear. IMPRESSION: 1. No acute intracranial disease process. 2. Findings telephoned to Dr. Peter Estrella on 09/13/2016 1131 hrs. This study fulfills neurological imaging criteria for inclusion or exclusion of acute stroke therapies based on available published neurological guidelines. Brief History Melvi is a 76 yo female with history of Insulin Dependent T2DM and severe Parkinson's Disease who presented to the Ed from [facility] by EMS for altered mental status. Patient has severe dysarthria and dementia due to her PD so history is provided by EMS, nursing facility reports, and her two friends who are her reported DPOA. Per report, she was noted to be abruptly agitated and aggressive early this morning with nursing staff while in bed, which is fairly unusual, so they called EMS. She was noted to have a blood sugar in the 300s at the SNF, but EMS blood sugar readings were reported to be 29 and 32 during transport. She was given 1 amp of D50 while en route, but did not improve patient's mental status. She was given Ketamine which improved her agitation. Blood sugar in the ED was noted to be 259. Blood drawn during EMS transport was analyzed again at the ED and sugar was indeed low at 36. Per her DPOAs, she was at baseline prior to this morning and has not had any complaints of pain or fever. They note that she does get AMS with previous UTIs, but not as agitated as this episode. They haven't noticed any focal weakness or asymmetry to her face. At baseline, she is able to acknowledge and answer simple questions and generally crawls around instead of using her wheelchair. No trauma was reported. In the ED, she was afebrile, mildly bradycardic in the high 50s, and blood pressure was stable in the 140s systolic. She was 98% on RA. ABG was reassuring and CBC showed WBC of 10.7 with benign diff. CMP pertinent for Cr of 1.47 and BG of 36. Ammonia level was 46. We do not have any recent Cr for comparison. Urine was positive for small Leukocytes and 11-50 WBC. She had a portable CXR and Brain CT that were benign. Hospital Course 76 yo F with h/o Parkinson's and IDDM presents for sudden onset of AMS. Altered Mental Status, POA, Resolved Uncertain of etiology, but this could be due to a UTI, hypoglycemia, or worsening of PD. Unlikely stroke with non-focal exam, but still a possibility UA did show small Leukocytes with 11-50 WBC. Culture pending. Will initiate antibiotics until cultures return Patient's Brain CT on admit was benign, EKG read as Sinus rhythm with rate of 55 with prob LVH and PACs Swallow eval recommended honey/pureed with 1:1 feeding, upright, small bites and sips, stop p.o. if coughing. Will treat presumed UTI with IV Ceftriaxone 1 gram q24 (09/13/16), plan to tx with 7 day course Blood cultures pending Urine cultures grew E. coli Severe Parkinson's Disease, POA Patient is mainly bedbound and sedentary at baseline, although she does crawl around on the ground at times. She also has dysarthria, dysphagia, dementia, and incontinence Plan to continue home medication regimen Insulin Dependent Type 2 Diabetes Mellitus, POA Hypoglycemia could be a cause of patient's AMS, Will monitor glucose regularly Resume home Lantus dose and initiate medium dose correctional scale - HELD Insulin last night and this morning due to BG <60. Will continue to hold and watch BG. Will titrate Insulin regimen appropriately. May be inappropriately low due to infection. Hemoglobin A1c pending Decreased Lantus dosing to 12units BID on discharge due to low sugars in the Am. Chronic Urinary and bowel incontinence secondary to Parkinson's Disease, POA D/c Angelo Hypertension, POA Resume home meds Hyperlipidemia, POA Exam Vital Signs (Last) Date Time Temp Pulse Resp B/P Pulse Ox O2 Delivery O2 Flow Rate FiO2 09/15/16 12:48 36.2 48 18 141/53 97 Room Air Exam Gen: Thin female who appears in NAD, cooperative HEENT: Atraumatic, PERRL, Oral mucosa dry Neck: Soft, midline CV: RRR with soft systolic murmur, radial pulses present and equal Resp: CTAB, normal respiratory effort Abd: Soft, non-distended, normoactive BS present, non tender MSK: Moves all extremities. Large bilateral pre-patellar effusion. No erythema noted. Neuro: Repetitive circular motion of neck and right hand. Alert and oriented to place and person. No focal weakness Skin: No rashes noted, warm, dry Psych: Not alert or oriented : Angelo catheter in place draining Beckie colored urine Test 09/13/16 11:20 09/13/16 11:22 09/13/16 12:32 09/13/16 16:18 Hold Blue Top Tube Received (Received) Hemoglobin A1c 6.5% (4.8-5.6) Total Bilirubin 0.4mg/dL (0.0-1.2) Aspartate Amino Transf (AST/SGOT) 24U/L (0-50) Alanine Aminotransferase (ALT/SGPT) 5U/L (0-32) Alkaline Phosphatase 63U/L (25-165) Total Protein 7.6g/dL (6.4-8.4) Albumin 3.9g/dL (3.4-5.0) Hold Red Top Tube Received (Received) Urine Color Yellow (YELLOW) Urine Appearance Hazy (CLEAR,HAZY) Urine pH 5.0 (5.0-8.0) Urine Specific [place] 1.020 (1.003-1.035) Urine Protein Negativemg/dL (NEG,TRACE) Urine Glucose (UA) Negativemg/dL (NEGATIVE) Urine Ketones Tracemg/dL (NEGATIVE) Urine Occult Blood Negative (NEGATIVE) Urine Nitrite Negative (NEGATIVE) Urine Bilirubin Negative (NEGATIVE) Urine Urobilinogen Normalmg/dL (NORMAL) Urine Leukocyte Esterase Small (NEGATIVE) Urine RBC 0-2/hpf (0-2) Urine WBC 11-50/hpf (0-5) Urine Epithelial Cells Occasional/hpf (NONE-MOD) Urine Crystals None seen (NONE SEEN) Urine Bacteria Many/hpf (NONE-FEW) Urine Hyaline Casts Occasional/lpf (NONE) Urine Granular Casts None seen (NONE SEEN) Urine Waxy Casts None seen (NONE SEEN) Urine Red Blood Cell Casts None seen (NONE SEEN) Urine White Blood Cell Casts None seen (NONE SEEN) Urine Mucus None seen (None Seen) Urine Trichomonas None seen (NONE SEEN) Urine Yeast None (NONE SEEN) Urinalysis Comment None Urine Culture Reflexed Indicated Ammonia 46ug/dL (18-53) Lactic Acid Level 1.4mmol/L (0.4-2.0) Procalcitonin 0.11ng/mL (0.00-0.08) Test 09/15/16 06:35 White Blood Count 6.1th/mm3 (3.8-10.1) Red Blood Count 3.84mil/mm3 (3.90-5.20) Hemoglobin 11.0g/dL (12.0-15.6) Hematocrit 33.7% (35.0-46.0) Mean Corpuscular Volume 87.8fL (81-100) Mean Corpuscular Hemoglobin 28.6pg (27.0-35.0) Mean Corpuscular Hemoglobin Concent 32.6% (32.0-37.0) Red Cell Distribution Width 13.1% (12.3-15.4) Platelet Count 296bil/L (150-400) Neutrophils (%) (Auto) 56.7% (40-74) Lymphocytes (%) (Auto) 27.2% (14-46) Monocytes (%) (Auto) 12.7% (4-12) Eosinophils (%) (Auto) 2.9% (0-5) Basophils (%) (Auto) 0.5% (0-3) Sodium Level 132mEq/L (134-144) Potassium Level 4.8mEq/L (3.5-5.2) Chloride Level 99mEq/L (97-108) Carbon Dioxide Level 20mmol/L (18-29) Blood Urea Nitrogen 15mg/dL (8-27) Creatinine 0.66mg/dL (0.57-1.00) Estimat Glomerular Filtration Rate 125mL/min (>59) Glucose Level 149mg/dL (60-99) Calcium Level 8.8mg/dL (8.5-10.1) Discharge Medications Discharge Medications ([resource 2.0]) 90 ML PO BID (Reported) Atorvastatin (Lipitor) 10 Mg Tab 10 MG PO HS (Reported) Carbidopa/Levodopa 25-100 mg (Carbidopa/Levodopa 25-100 mg) 1 Each Tablet 2.5 TABLET PO qam at 0600 (Reported) Carbidopa/Levodopa 25-100 mg (Sinemet 25-100 mg) 1 Each Tablet 3 TABLET PO qam at 0900 (Reported) Carbidopa/Levodopa 25-100 mg (Sinemet 25-100 mg) 1 Each Tablet 2 TABLET PO TIDat noon,4p and 8p (Reported) Carbidopa/Levodopa ER 50-200 mg (Sinemet CR 50-200 mg) 1 Each Tablet 1 TABLET PO HS (Reported) Cephalexin (Keflex) 500 Mg Capsule 500 MG PO BID Prescribed by: FRANCIA MULLIGAN DO Cholecalciferol (Vitamin D3) (Vitamin D3) 50,000 Unit Capsule 50,000 UNIT PO daily every 15 days (Reported) Dextran 70/Hypromellose/Pf (Artificial Tears Drops) 1 Each Droperette 1 DROP BOTH_EYES QID (Reported) Docusate Sodium (Colace) 100 Mg Capsule 100 MG PO DAILY (Reported) Donepezil (Aricept) 10 Mg Tablet 10 MG PO HS (Reported) Entacapone (Entacapone) 200 Mg Tablet 200 MG PO 5XD (Reported) Estrogens Conjugated (Premarin) 1 Gm Vagcream 1 GM VG every monday night ( Reported) Ferrous Sulfate (Ferrous Sulfate) 325 Mg Tablet 325 MG PO DAILY (Reported) Insulin Glargine (Lantus U100 Insulin Vial) 100 Unit/Ml Vial 12 UNIT SUBQ BID@ Prescribed by: FRANCIA MULLIGAN DO Lisinopril (Lisinopril) 2.5 Mg Tablet 2.5 MG PO DAILY (Reported) Multivitamin (Once Daily) 1 Each Tablet 1 EACH PO DAILY (Reported) Omeprazole (Omeprazole) 20 Mg Capsule.dr 20 MG PO DAILY (Reported) Polyethylene Glycol 3350 (Miralax) 17 Gm Powd.pack 17 GM PO DAILY (Reported) Pramipexole Dihydrochloride (Mirapex) 0.125 Mg Tablet 0.125 MG PO qid at 10,2pm, 6p,10p (Reported) Pramipexole Dihydrochloride (Mirapex) 0.25 Mg Tablet 0.25 MG PO qam at 0600 ( Reported) Selegiline HCl (Zelapar) 1.25 Mg Tab.rapdis 2.5 MG PO QAM (Reported) As needed Acetaminophen (Acetaminophen) 325 Mg Capsule 650 MG PO q4 hours PRN PRN For Pain (Reported) Guaifenesin (Liquituss GG) 200 Mg/5 Ml Liquid 200 MG PO q4 hours PRN PRN For Cough (Reported) Insulin Human Lispro (HumaLOG U100 Insulin Vial) 100 Unit/Ml Unit 3 UNIT SUBQ QPM PRN PRN blood sugar >110 (Reported) Insulin Lispro (HumaLOG U100 Insulin Pen) 100 Unit/1 Ml Insuln.pen 4 UNIT SUBQ BIDBL PRN PRN blood sugar >110 (Reported) Blood Sugar Lispro Correction <151 0 units 151-175 1 unit 176-200 2 units 201-225 3 units 226-250 4 units 251-275 5 units 276-300 6 units 301-325 7 units 326-350 8 units 351-375 9 units 376-400 10 units >400 12 units Check blood sugars before meals and at bedtime. Use correction factor only before meals. Magnesium Hydroxide (Milk of Magnesia) 400 Mg/5 Ml Oral.susp 30 ML PO DAILY PRN PRN For Constipation (Reported) Additional med instructions Please continue taking your medications as instructed. Please take the antibiotics as instructed and finish them all Please drink at least 2 Liters of water daily. Followup Plan Disposition: SNF Discharge Diet: Diabetic Discharge Activity: Outpatient Physical Therapy Patient Instructions You are being discharged back to [facility] Please follow up with your PCP in 1-2 weeks. Follow-up Provider: Traci Mead MD Follow-up with PCP in: 1 week Time spent 40 minutes Attending Statement I have seen and evaluated patient at bedside in addition to directly supervising care provided by resident physician. I agree with above documentation. Please note: Pt DC'd on Keflex, no Rocephin. copies to: Traci Mead MD, Hong D DO Sep 16, 2016 19:41 Pola Avalos DO Sep 17, 2016 15:57
[2016-09-22] MEDS ORDERED: CHOLECALCIFEROL 50000 UNIT PO ONE (08:30)
== END 2016-09-15 14:10 ==
LOC: EDBD 11:10 → SED 11:10 → MPC 12:40 → INTOOBSV 12:40 → MPC 13:11
PROVIDERS: ADMIT Family Medicine; ATTEND Family Medicine
DX: N39.0 Urinary tract infection, site not specified (principal); B96.20 Unspecified Escherichia coli [E. coli] as the cause of diseases classified elsewhere; G93.49 Other encephalopathy; G20 Parkinson's disease; F02.80 Dementia in other diseases classified elsewhere, unspecified severity, without behavioral disturbance, psychotic disturbance, mood disturbance, and anxiety; E11.649 Type 2 diabetes mellitus with hypoglycemia without coma; R32 Unspecified urinary incontinence; R15.9 Full incontinence of feces; I10 Essential (primary) hypertension; E78.5 Hyperlipidemia, unspecified; R41.82 Altered mental status, unspecified; R47.1 Dysarthria and anarthria; N13.30 Unspecified hydronephrosis; K80.20 Calculus of gallbladder without cholecystitis without obstruction; K21.9 Gastro-esophageal reflux disease without esophagitis; F32.9 Major depressive disorder, single episode, unspecified; E55.9 Vitamin D deficiency, unspecified; Z66 Do not resuscitate; Z79.4 Long term (current) use of insulin
CPT/HCPCS: 36415; 36620; 70450; 71010; 80048; 80053; 81000; 82140; 82308; 82375; 82803; 82948; 83036; 83605; 85025; 87040; 87077; 87086; 87088; 87186; 92526; 92610; 93005; 96365; 96366; 96375; 99285; G0378; G8996; G8997; J0696; J1815; J2250; J7030